=== PATIENT | female | born 1985 | race Caucasian/White ===

== ENCOUNTER 2018-06-06 14:18 | Outpatient (CLI) | END 2018-06-06 15:37 | disposition home or self-care (01) ==

== ENCOUNTER 2018-06-12 18:12 | Outpatient (CLI) | END 2018-06-12 21:18 | disposition home or self-care (01) ==

== ENCOUNTER 2018-06-13 05:35 | Inpatient (IN) | END 2018-06-15 13:20 | disposition home or self-care (01) | DRG 807 ==